=== PATIENT | female | born 1985 | race Caucasian/White ===

== ENCOUNTER 2017-07-25 10:55 | Emergency (ER) | END 2017-07-25 11:49 | disposition home or self-care (01) ==

== ENCOUNTER 2017-08-05 08:26 | Emergency (ER) | END 2017-08-05 09:38 | disposition home or self-care (01) ==

== ENCOUNTER 2018-05-30 01:46 | Emergency (ER) | payer MEDICAID ==
[~2018-05-30] VITALS: Ht 162.6 cm; Wt 58.2 kg
[~2018-05-30 01:46] MED LIST: CEPH-443 PO; MUPI22OI2 TOP; PREN1TAB49 PO; TRIA15OI9 TOP
[2018-05-30 01:50] VITALS: Ht 162.6 cm; Wt 58.2 kg
[2018-05-30] MEDS ORDERED: ACETAMINOPHEN 500 MG TAB PO STA (03:42)
--- NOTE | 2018-05-30 03:56 | ERD ---
ER Documentation Chief Complaint Chief Complaint fever x 3 days, body rash x 2 hours. no sob HPI This is a 32-year-old female presents ED with complaints of fever times 3 days. Patient admits to sore throat, runny nose, ear pain, cough, congestion and headache. Denies shortness of breath, trouble breathing, wheezing, nausea, vomiting, diarrhea, constipation. Patient states that whenever she has a fever she starts to develop rash on trunk of body. Patient states that she does not currently have a rash. Patient states that she has been taking Motrin and DayQuil for her symptoms. Patient has taken DayQuil and Motrin in the past with no issues. No known drug allergies. Denies recent sick contact or recent travel ROS All systems reviewed and are negative except as per history of present illness. Medications Home Meds Active Scripts Ibuprofen* (Motrin*) 600 Mg Tab, 600 MG PO Q6, #30 TAB Prov:CHAYA RODNEY PA-C 05/30/18 Diphenhydramine Hcl* (Benadryl*) 50 Mg Cap, 50 MG PO Q6 PRN for ITCHING, #30 CAP Prov:CHAYA RODNEY PA-C 05/30/18 Dextromethorphan Hb-Promethazine Hcl* (Promethazine DM* Syrup) 473 Ml Syrup, 5 ML PO Q6 PRN for COUGH for 5 Days, ML Prov:CHAYA RODNEY PA-C 05/30/18 Mupirocin* (Bactroban*) 2% -22 Gram Oint...g., 1 APPLIC TOP BID for 7 Days, EA Prov:DEMIAN WING PA-C 08/05/17 Triamcinolone Acetonide (Triamcinolone Acetonide) 0.5% - 15 Gm Oint..gm., 1 APPLIC TOP BID, #1 TUB Prov:HALLE LOONEY 07/25/17 Cephalexin* (Keflex*) 500 Mg Capsule, 500 MG PO BID for 7 Days, CAP Prov:HALLE LOONEY 07/25/17 Reported Medications Vits W-Ca,Fe,Fa(<1MG) () 1 Tab Tablet, 1 TAB PO 04/10/12 Vits W-Ca,Fe,Fa(<1MG) () 1 Tab Tablet, 1 TAB PO DAILY 04/09/12 Vits W-Ca,Fe,Fa(<1MG) () 1 Tab Tablet, 1 PO DAILY 12/02/10 Allergies Allergies: Coded Allergies: No Known Drug Allergies (Verified Allergy, Unknown, 05/30/18) PMhx/Soc Medical and Surgical Hx: pt denies Medical Hx, pt denies Surgical Hx Hx Alcohol Use: No Hx Substance Use: No Hx Tobacco Use: No Smoking Status: Never smoker FmHx Family History: No diabetes Physical Exam Vitals Vital Signs Date Temp Pulse Resp B/P (MAP) Pulse Ox O2 O2 Flow FiO2 Time Delivery Rate 05/30/18 99.7 03:52 05/30/18 99.7 03:52 05/30/18 100.0 96 18 124/81 98 01:50 (95) Physical Exam Physical Exam Vitals signs: Reviewed by me. General: Well developed, well nourished, in no acute distress. Patient is awake and alert. Head: Normocephalic, atraumatic. Eyes: Normal conjunctiva, Pupils PERRLA, EOM intact grossly ENT: Pharynx is clear, Moist mucous membranes, external ears, nose and mouth normal, no tonsillar adenopathy, exudate or erythema, no kissing tonsils, no uvula deviation, oropharynx is clear with no erythema, normal nasal mucosa with no discharge, tympanic membrane visualized bilaterally no bulging, erythema, purulent air-fluid line seen, Neck: Supple, no masses, lymphadenopathy or JVD Respiratory: Clear to auscultation bilaterally with no wheezing, rhonchi, rales, no distress Cardiovascular: RRR, no murmurs, rubs, or gallops Neurologic: Alert and oriented, moving all extremities, normal speech, no focal weakness, no cerebellar signs. Normal mentation Skin: warm and dry, No rash Psych: Normal mood Results 24 hrs Current Medications Medications Dose Sig/Jules Start Time Status Last (Trade) Ordered Route PRN Stop Time Admin Dose Reason Admin Ibuprofen 600 mg ONCE ONCE 05/30/18 DC 05/30/18 (Motrin) PO 04:00 05/30/18 03:52 04:01 1,000 mg ONCE STAT 05/30/18 DC 05/30/18 Acetaminophen PO 03:42 05/30/18 03:52 (Tylenol 03:44 Tab) Promethazine 5 ml ONCE ONCE 05/30/18 DC HCl/ PO 04:30 05/30/18 Dextromethorp 04:30 sabillon (Phenergan-Dm ) 50 mg ONCE ONCE 05/30/18 DC 05/30/18 Diphenhydrami PO 04:30 05/30/18 04:26 ne HCl 04:31 (Benadryl) Promethazine 5 ml ONCE ONCE 05/30/18 DC 05/30/18 HCl/ PO 04:30 05/30/18 04:26 Dextromethorp 04:31 sabillon (Phenergan-Dm ) Procedures/MDM EKG, MONITORS, & DIAGNOSTIC IMAGING: [place] [id number] Radiology Main Line: [phone] DIAGNOSTIC IMAGING REPORT Patient: ROSEMARY COOPER : 1985 Age: 32 Sex: F MR #: [id number] DOS: 05/30/18 0342 Ordering MD: CHAYA RODNEY PA-C Location: [facility] Room/Bed: PROCEDURE: XR Chest. CLINICAL INDICATION: Fever and cough TECHNIQUE: AP Portable chest. COMPARISON: None available FINDINGS: The soft tissues and bones are normal. No focal infiltrates, masses, or effusions are noted. The mediastinum and heart are normal. No pneumothorax is present. IMPRESSION: 1. No radiographic evidence for acute cardiopulmonary disease RPTAT: HDC .Louann Dixon MD, Date Time Electronically viewed and signed by .Louann Dixon MD, MD on 05/30/2018 05:09 .C/ CC: CHAYA RODNEY PA-C [phone] LAB INTERPRETATION: Influenza negative ER COURSE: The patient was given ibuprofen, Tylenol, benadryl, promethazine DM The medication was well tolerated and the patient reports improvement in symptoms. The patient was stable throughout ED course. I kept the patient and/or family informed of laboratory and diagnostic imaging results throughout the emergency room course. The patient was promptly evaluated and a treatment plan was devised based on H&P and other data. This plan was discussed with the patient who agreed and had no further questions or concerns prior to discharge. MEDICAL DECISION MAKING: This is a 32-year-old female who presents ED with complaints of fever and cough times 3 days. Patient also states that she develops a an itchy rash whenever she develops a fever. Patient does not have a rash in the emergency department today. The patient's clinical presentation is very consistent with an acute viral syndrome. No evidence of pneumonia. The patient is well-appearing without respiratory distress. Normal oxygen saturation. X-ray imaging unremarkable. Influenza negative. No indication for Tamiflu. The patient does not exhibit any clinical signs or symptoms concerning for serious bacterial infection or systemic illness. Based on history and clinical exam findings the patient does not appear to have evidence of pneumonia, strep pharyngitis, urinary tract infection, bacteremia, sepsis, or meningitis. For these reasons I do not believe it is necessary to obtain further laboratory testing or diagnostic imaging. I believe it would be appropriate for symptom control, and close outpatient primary care follow-up. We discussed follow up with the patient's primary care doctor within 24 to 48 hours as needed. We also discussed return to the emergency room for worsening symptoms or worsening condition. DISPOSITION PLAN: We discussed follow up with the patient's primary care doctor within 24 to 48 hours. Patient counseled regarding my diagnostic impression and care plan. Prior to discharge all questions answered. Pt agrees with treatment plan and understands strict return precautions. Precautionary instructions provided including instructions to return to the ER if not improving or for any worsening or changing symptoms or concerns. SPECIALIST FOLLOW UP RECOMMENDED: None Patient has been advised to follow up with primary care in 1-2 days. Disclaimer: Inadvertent spelling and grammatical errors are likely due to EHR/dictation software use and do not reflect on the overall quality of patient care. Also, please note that the electronic time recorded on this note does not necessarily reflect the actual time of the patient encounter. Blood Pressure Assessment: Patient's blood pressure was elevated (>120/80) but appears stable without evidence of hypertension emergency or urgency. The patient was counseled about the risks of hypertension and urged to pursue outpatient monitoring and therapy within a week with their primary care physician. Departure Diagnosis: Primary Impression: Viral syndrome Condition: Stable Patient Instructions: Viral Syndrome (Adult) [facility] Additional Instructions: Paciente aconseja volver a Departamento de urgencias inmediatamente para sntomas nuevos o que empeoran . Paciente aconseja posteriores con el PCP en 1-2 carlson . Paciente verbaliza la comprehensin y est de acuerdo con el tratamiento y el curso de accin. Si el paciente no tiene ninguna de atencin primaria pueden seguir con [facility] [id number] [place] [address] o [facility] + [address] [id number] CHAYA RODNEY PA-C May 30, 2018 03:56
[2018-05-30] MEDS ORDERED: IBUPROFEN 600 MG TAB PO ONE (04:00)
[2018-05-30] MEDS ORDERED: PROMETHAZINE/DM (CUP) PO ONE ×2 (04:30)
[2018-05-30] MEDS ORDERED: DIPHENHYDRAMINE 50 MG CAP PO ONE (04:30)
[2018-05-30] MEDS ORDERED: IBUP-1542 PO (04:49)
[2018-05-30] MEDS ORDERED: BEN50 PO (04:49)
[2018-05-30] MEDS ORDERED: D-ME473S2 PO (04:49)
[2018-05-30 05:32] VITALS: BP 110/83; PULSE 76; RESP 19
== END 2018-05-30 05:34 | disposition home or self-care (01) ==
LOC: FTE 01:46
DX: B34.9 Viral infection, unspecified (principal)
CPT/HCPCS: 71045; 87400; Z7502; Z7610